=== PATIENT | male | born 1980 | race Caucasian/White ===

== ENCOUNTER 2023-10-25 17:50 | Emergency (ER) | payer OTHER ==
[~2023-10-25] VITALS: Ht 180.3 cm; Wt 72.7 kg
[2023-10-25 17:51] VITALS: BP 157/86; TEMP 97.5; O2SAT 98
[2023-10-25] MEDS ORDERED: UNRESOLVED CLARIFICATION ENTRY XX STA (22:13)
[2023-10-25] MEDS ORDERED: AMOX875T2 PO (22:18)
[2023-10-25] MEDS: AUGMENTIN 875 MG TAB PO ONE (22:31)
== END 2023-10-25 22:47 | disposition home or self-care (01) ==
LOC: M ED 17:50
DX: S80.211A Abrasion, right knee, initial encounter (principal); Y92.828 Other wilderness area as the place of occurrence of the external cause; Y93.9 Activity, unspecified; Y99.9 Unspecified external cause status; Z79.2 Long term (current) use of antibiotics